=== PATIENT | male | born 1960 | race Caucasian/White ===

== ENCOUNTER 2020-06-21 01:23 | Emergency (ER) | payer BC, SELFPAY ==
[~2020-06-21 01:23] MED LIST: ASPIR-LOW81 MG PO; BUSPAR 10MG10 MG PO; CATAPRES 0.1MG0.1 MG PO; COZAAR100 MG PO; GLUCOPHAGE 500500 MG PO; LIPITOR80 MG PO; LOPRESSOR 25 MG25 MG PO; NIFEDIPINE ER90 MG PO; PROTONIX40 MG PO; TRICOR 145 MG145 MG PO; VITAMIN B12-FO1 EACH PO; VITAMIN D31000 UNIT PO
[2020-06-21 03:45] LABS: HEMOGLOBIN 13.6 gm/dl (14.0-17.5); RED BLOOD COUNT 4.52 M/UL (4.20-5.50); WHITE BLOOD COUNT 4.4 K/UL (4.5-11.0)
[2020-06-21 04:01] LABS: BUN/CREATININE RATIO 13 (0-10)
[2020-06-21] MEDS ORDERED: ASPIRIN CHEWABL81 MG PO (04:26)
== END 2020-06-21 05:00 | disposition home or self-care (01) ==
LOC: ER1 01:23
PROVIDERS: Family Medicine
DX: I73.9 Peripheral vascular disease, unspecified (principal); E11.65 Type 2 diabetes mellitus with hyperglycemia; Z88.1 Allergy status to other antibiotic agents; Z88.8 Allergy status to other drugs, medicaments and biological substances; Z88.2 Allergy status to sulfonamides
CPT/HCPCS: 71046; 80053; 82550; 82553; 83874; 84484; 85025; 85610; 93005; 99284

== ENCOUNTER → 2020-06-25 | Outpatient (CLI) | payer BC, SELFPAY ==
[~2020-06-25] MED LIST changes: +ASPIRIN CHEWABL81 MG PO
== END ==
LOC: EXRD 14:35
DX: I73.9 Peripheral vascular disease, unspecified (principal)
CPT/HCPCS: 93925

== ENCOUNTER → 2021-10-22 | Outpatient (CLI) | payer BC | LOC: EXRD 12:24 | DX: E11.9 Type 2 diabetes mellitus without complications (principal) | CPT/HCPCS: 76775 ==

== ENCOUNTER → 2021-12-17 | Outpatient (CLI) | payer BC | LOC: RAD 14:15 | DX: M54.50 Low back pain, unspecified (principal); M25.552 Pain in left hip; M47.816 Spondylosis without myelopathy or radiculopathy, lumbar region; M16.12 Unilateral primary osteoarthritis, left hip | CPT/HCPCS: 72100; 73502 ==

== ENCOUNTER → 2021-12-30 | Outpatient (CLI) | payer BC ==
[2021-12-31 10:14] LABS: CREATININE, URINE 29.9 mg/dL (Not Estab.)
== END ==
LOC: LAB 09:57
PROVIDERS: Internal Medicine Nephrology
DX: N17.9 Acute kidney failure, unspecified (principal)
CPT/HCPCS: 36415; 80053; 81001; 82043; 82570; 84156

== ENCOUNTER → 2022-02-15 | Outpatient (CLI) | payer BC | LOC: HEART 5 08:13 | DX: I25.10 Atherosclerotic heart disease of native coronary artery without angina pectoris (principal); R94.31 Abnormal electrocardiogram [ECG] [EKG] | CPT/HCPCS: 78452; 93306; A9502; J2785 ==